=== PATIENT | female | born 1950 | race Caucasian/White ===

== ENCOUNTER → 2017-01-27 | Outpatient (CLI) | payer OTHER | LOC: FIMAGING 08:59 | PROVIDERS: ATTEND Physician Assistant | DX: K76.0 Fatty (change of) liver, not elsewhere classified (principal); R16.1 Splenomegaly, not elsewhere classified ==

== ENCOUNTER 2017-06-18 20:36 | Inpatient (IN) | payer OTHER ==
--- NOTE | 2017-06-18 20:54 | EDPHY ---
H & P Time Seen by Provider: 06/18/17 20:53 HPI/ROS: CHIEF COMPLAINT: Allergic reaction HISTORY OF PRESENT ILLNESS: The patient has a history of a mast cell disorder. She presents to the ED after typical allergic reaction with symptoms of flushing, vomiting and mild dyspnea. The patient self administered 1 IM epinephrine shot. She took Benadryl and prednisone orally however vomited immediately after taking the medications. She arrives in the emergency department with her . The patient states these are fairly typical symptoms of her underlying mass cell disorder. The patient is fairly concrete that her epinephrine be given subcutaneously, Benadryl be given intramuscularly and that all medications be preservative free. The patient does complain of some mild anterior chest pain. She denies additional acute complaints. REVIEW OF SYSTEMS: A comprehensive 10 point review of systems is otherwise negative aside from elements mentioned in the history of present illness. Source: Patient Exam Limitations: No limitations - Medical/Surgical History Hx Asthma: No Hx Chronic Respiratory Disease: No Hx Diabetes: Yes Hx Cardiac Disease: No Hx Renal Disease: No Hx Cirrhosis: No Hx Alcoholism: No Hx HIV/AIDS: No Hx Splenectomy or Spleen Trauma: No Other PMH: systemic mastocyctosis, hoshimoto's, hysterectomy, ovarian ca, carpal tunnel surg, cyst removed from back - Social History Smoking Status: Former smoker - Physical Exam Exam: General Appearance: Alert, anxious Eyes: Pupils equal and round no pallor or injection ENT, Mouth: Mucous membranes moist Respiratory: There are no retractions, lungs are clear to auscultation Cardiovascular: Tachycardic Gastrointestinal: Abdomen is soft and nontender, no masses, bowel sounds normal Neurological: A&O, normal motor function, normal sensory exam, normal cranial nerves Skin: Flushing in the face, mild erythema noted to the backs of hands and arms Musculoskeletal: Neck is supple nontender Extremities: symmetrical, full range of motion Constitutional: Initial Vital Signs Temperature (C) 36.9 C 06/18/17 21:10 Heart Rate 123 H 06/18/17 21:10 Respiratory Rate 20 06/18/17 21:10 Blood Pressure 135/63 H 06/18/17 21:10 O2 Sat (%) 95 06/18/17 21:10 O2 Delivery Mode Room Air Allergies/Adverse Reactions: diphenhydramine HCl [From Benadryl] Allergy (Severe, Verified 06/18/17 21:05) Anaphylaxis doxycycline Allergy (Severe, Verified 06/18/17 21:05) Anaphylaxis paclitaxel Allergy (Severe, Verified 06/18/17 21:05) Anaphylaxis Quinolones Allergy (Severe, Verified 06/18/17 21:05) Anaphylaxis alcohol Allergy (Verified 06/18/17 21:05) amphotericin B Allergy (Verified 06/18/17 21:05) aspirin Allergy (Verified 06/18/17 21:05) atracurium Allergy (Verified 06/18/17 21:05) benzocaine Allergy (Verified 06/18/17 21:05) chloroprocaine Allergy (Verified 06/18/17 21:05) codeine Allergy (Verified 06/18/17 21:05) dextran sulfate Allergy (Verified 06/18/17 21:05) dextromethorphan Allergy (Verified 06/18/17 21:05) doxacurium Allergy (Verified 06/18/17 21:05) ketorolac tromethamine [From Toradol] Allergy (Verified 06/18/17 21:05) metocurine Allergy (Verified 06/18/17 21:05) mivacurium Allergy (Verified 06/18/17 21:05) morphine Allergy (Verified 06/18/17 21:05) NSAIDS (Non-Steroidal Anti-Inflamma Allergy (Verified 06/18/17 21:05) polymyxin B Allergy (Verified 06/18/17 21:05) procaine Allergy (Verified 06/18/17 21:05) quinine Allergy (Verified 06/18/17 21:05) succinylcholine Allergy (Verified 06/18/17 21:05) tetracaine Allergy (Verified 06/18/17 21:05) vancomycin Allergy (Verified 06/18/17 21:05) contrast dye Allergy (Severe, Uncoded 05/25/16 17:14) Anaphylaxis ANTICHOLINERGICS Allergy (Uncoded 05/25/16 17:14) anything causing mast cell degranul Allergy (Uncoded 12/17/15 20:51) beta blockers Allergy (Uncoded 12/17/15 20:52) local anesthetics Allergy (Uncoded 12/17/15 20:52) PRESERVATIVES Allergy (Uncoded 05/25/16 17:14) TURBOCURARINE Allergy (Uncoded 05/25/16 17:14) Home Medications: Medication Instructions Recorded Astaj 12/17/15 Atrovent Hfa (RX) 12/17/15 BENADRYL PO 12/17/15 Bromelain 12/17/15 Cromolyn Sodium 12/17/15 Epinephrine 12/17/15 FEXOFENADINE HCL 12/17/15 Flovent 110 MCG Hfa MDI (RX) 12/17/15 GASTROCROM 12/17/15 Hydroxyzine HCl 12/17/15 Ketotifen Fumarate 12/17/15 LORAZEPAM 12/17/15 Nasalcrom 12/17/15 Pepcid 12/17/15 Synthroid 12/17/15 Tumeric 12/17/15 Tylenol 12/17/15 Veramyst 12/17/15 ZYRTEC 12/17/15 predniSONE 12/17/15 traMADOL 12/17/15 Medical Decision Making - Diagnostics EKG Interpretation: EKG: Complete interpretation has been separately recorded in the gripNote archive. Summary impression: Sinus tachycardia, ST segment depression noted diffusely. Likely rate-related ED Course/Re-evaluation: The patient presents to the emergency department with symptoms of flushing, tachycardia and rash consistent with her prior episodes of mastocytosis. The patient did receive epinephrine intramuscularly prior to arrival. Her heart rate is currently in the 130s. She has no evidence of hypotension or respiratory failure. The patient had an IV established. She received 125 mg of IV Solu-Medrol. She received 50 mg of IM Benadryl. The patient was placed on a security monitor. She received supplemental oxygen. The patient's EKG does demonstrate sinus tachycardia. She does have diffuse ST segment depression. There is no prior EKG to compare to. I re-evaluated the patient at 10:30 p.m.. Her symptoms of flushing have resolved. She has had no recurrent chest pain. The patient has no history of coronary artery disease. She is not had chest pain as a symptom of her allergic reactions in the past. Given her ST segment depression we did discuss risks and benefits of inpatient hospitalization. I do feel that she should be ruled out for myocardial infarction this evening. I discussed the case with Dr. Cardenas, who will admit the patient for observation this evening. The patient is currently chest pain-free. Differential Diagnosis: Differential diagnosis considered includes anaphylaxis, angioedema, urticaria, mast cell disorder - Data Points Laboratory Results: Laboratory Results 06/18/17 21:00 06/18/17 21:00 06/18/17 06/18/17 21:00 21:00 WBC 8.25 10^3/uL 10^3/uL (3.80-9.50) RBC 3.58 10^6/uL L 10^6/uL (4.18-5.33) Hgb 11.9 g/dL L g/dL (12.6-16.3) Hct 33.2 % L % (38.0-47.0) MCV 92.7 fL fL (81.5-99.8) MCH 33.2 pg pg (27.9-34.1) MCHC 35.8 g/dL g/dL (32.4-36.7) RDW 13.1 % % (11.5-15.2) Plt Count 288 10^3/uL 10^3/uL (150-400) MPV 9.4 fL fL (8.7-11.7) Neut % (Auto) 68.9 % % (39.3-74.2) Lymph % (Auto) 24.2 % % (15.0-45.0) [place] % (Auto) 4.7 % % (4.5-13.0) Eos % (Auto) 0.4 % L % (0.6-7.6) Baso % (Auto) 0.1 % L % (0.3-1.7) Nucleat RBC Rel Count 0.0 % % (0.0-0.2) Absolute Neuts (auto) 5.68 10^3/uL 10^3/uL (1.70-6.50) Absolute Lymphs (auto) 2.00 10^3/uL 10^3/uL (1.00-3.00) Absolute Monos (auto) 0.39 10^3/uL 10^3/uL (0.30-0.80) Absolute Eos (auto) 0.03 10^3/uL 10^3/uL (0.03-0.40) Absolute Basos (auto) 0.01 10^3/uL L 10^3/uL (0.02-0.10) Absolute Nucleated RBC 0.00 10^3/uL 10^3/uL (0-0.01) Immature Gran % 1.7 % H % (0.0-1.1) Immature Gran # 0.14 10^3/uL H 10^3/uL (0.00-0.10) Sodium 137 mEq/L mEq/L (134-144) Potassium 4.0 mEq/L mEq/L (3.5-5.2) Chloride 103 mEq/L mEq/L (97-110) Carbon Dioxide 18 mEq/l L mEq/l (22-31) Anion Gap 16 mEq/L mEq/L (8-16) BUN 16 mg/dL mg/dL (7-23) Creatinine 0.7 mg/dL mg/dL (0.6-1.0) Estimated GFR > 60 Glucose 237 mg/dL H mg/dL (70-100) Calcium 9.3 mg/dL mg/dL (8.5-10.4) Troponin I < 0.012 ng/mL ng/mL (0.000-0.034) Medications Given: Discontinued Medications Diphenhydramine HCl (Benadryl Injection) 50 mg IM EDNOW ONE Stop: 06/18/17 21:08 Last Admin: 06/18/17 21:14 Dose: 50 mg Methylprednisolone Sodium Succinate (Solu-Medrol) 125 mg IVP EDNOW ONE Stop: 06/18/17 21:08 Last Admin: 06/18/17 21:20 Dose: 125 mg Departure - Departure Disposition: [facility] Inpatient Acute Clinical Impression: Allergic reaction, Chest pain Condition: Good Referrals: Carolina Hatch MD [Primary Care Provider] - As per Instructions
[2017-06-18] MEDS ORDERED: methylPREDNISolone SOD SUCC 125 MG/2 ML VIAL IVP ONE (21:07)
--- NOTE | 2017-06-18 21:38 | CPEKG ---
Heart Rate: 125 RR Interval: 480 P-R Interval: 160 QRSD Interval: 66 QT Interval: 304 QTC Interval: 439 P [place]: 73 QRS [place]: 42 T Wave [place]: 72 EKG Severity - ABNORMAL ECG - EKG Impression: SINUS TACHYCARDIA EKG Impression: ST DEPRESSION, CONSIDER ISCHEMIA, LAT LEADS Electronically Signed By: Zach Godwin 18-Jun-2017 21:54:33
[2017-06-18 21:57] LABS: % IMMATURE GRANULYOCYTES 1.7 % (0.0-1.1); ABSOLUTE IMMATURE GRANULOCYTES 0.14 10^3/uL (0.00-0.10); ADD DIFF? NO; ADD MORPH? NO; ADD SCAN? NO; ATYPICAL LYMPHOCYTE FLAG 20 (0-99); FRAGMENT RBC FLAG 0 (0-99); HEMATOCRIT 33.2 % (38.0-47.0); HEMOGLOBIN 11.9 g/dL (12.6-16.3); LEFT SHIFT FLG 0 (0-99); LIPEMIA HEMOLYSIS FLAG 90 (0-99); MEAN CELL HEMOGLOBIN 33.2 pg (27.9-34.1); MEAN CELL HEMOGLOBIN CONCENTR. 35.8 g/dL (32.4-36.7); MEAN CELL VOLUME 92.7 fL (81.5-99.8); MEAN PLATELET VOLUME 9.4 fL (8.7-11.7); PLATELET CLUMPS FLAG 0 (0-99); PLATELET COUNT 288 10^3/uL (150-400); RED BLOOD CELL COUNT 3.58 10^6/uL (4.18-5.33); RED CELL DISTRIBUTION WIDTH 13.1 % (11.5-15.2)
[2017-06-18 22:02] LABS: ANION GAP 16 mEq/L (8-16); CALCIUM 9.3 mg/dL (8.5-10.4); CARBON DIOXIDE 18 mEq/l (22-31); CHLORIDE 103 mEq/L (97-110); CREATININE 0.7 mg/dL (0.6-1.0); GLOMERULAR FILTRATION RATE > 60; GLUCOSE 237 mg/dL (70-100); SODIUM 137 mEq/L (134-144)
[2017-06-18 22:14] LABS: TROPONIN I < 0.012 ng/mL (0.000-0.034)
[2017-06-18] MEDS ORDERED: ACETAMINOPHEN 325 MG TAB PO PRN (22:57)
[2017-06-18] MEDS ORDERED: ONDANSETRON 4 MG/2 ML VIAL IVP PRN (22:57)
[2017-06-18] MEDS ORDERED: diphenhydrAMINE 25 MG CAP PO PRN (22:57)
[2017-06-18] MEDS ORDERED: LORazepam 0.5 MG TAB PO PRN (22:57)
[2017-06-18] MEDS ORDERED: D5W 1/2 NS W/ 20 KCl/L 1,000 ML IV SCH (23:00)
[2017-06-18] MEDS ORDERED: NITROGLYCERIN 0.4 MG BTL SL PRN (23:02)
[2017-06-18] MEDS ORDERED: FAMOTIDINE 20 MG TAB PO PRN (23:03)
[2017-06-18] MEDS ORDERED: hydrOXYzine HCL 50 MG TAB PO PRN (23:05)
[2017-06-19] MEDS ORDERED: NS 1,000 ML IV SCH (01:15)
[2017-06-19] MEDS: methylPREDNISolone SOD SUCC 125 MG/2 ML VIAL IVP SCH ×6 (01:31→22:03)
--- NOTE | 2017-06-19 04:09 | PDGENHP ---
History and Physical - Chief Complaint flushing - History of Present Illness Date of Service - Same as Date of admission 06/18/2017. late note entry. Source - patient provides history and appears reliable. EMR reviewed and case discussed with ED provider. HPI - Pleasant 67 yo F with pmhx significant for mastocytosis,hypothyroidism ( Lou), remote hx ovarian cancer, HLD who presents to the ED today with complaint of exacerbation of mastocytosis symptoms while eating out at a restaurant with family. Patient developed flushing, nausea/vomiting which are usual symptoms however today patient developed chest pain in addition to these other symptoms. Patient treated with PO Benadryl, prednisone, and pepcid dosing however at that time she was not able to keep it down due to nausea/ vomiting. Patient reports she gave herself a dose of epinephrine prior to arrival but did not notice improvement in her symptoms. History Information - Allergies/Home Medication List Allergies/Adverse Reactions: dextrose Allergy (Severe, Verified 06/19/17 02:52) diphenhydramine HCl [From Benadryl] Allergy (Severe, Verified 06/18/17 21:05) Anaphylaxis doxycycline Allergy (Severe, Verified 06/18/17 21:05) Anaphylaxis paclitaxel Allergy (Severe, Verified 06/18/17 21:05) Anaphylaxis Quinolones Allergy (Severe, Verified 06/18/17 21:05) Anaphylaxis alcohol Allergy (Verified 06/18/17 21:05) amphotericin B Allergy (Verified 06/18/17 21:05) aspirin Allergy (Verified 06/18/17 21:05) atracurium Allergy (Verified 06/18/17 21:05) benzocaine Allergy (Verified 06/18/17 21:05) chloroprocaine Allergy (Verified 06/18/17 21:05) codeine Allergy (Verified 06/18/17 21:05) dextran sulfate Allergy (Verified 06/18/17 21:05) dextromethorphan Allergy (Verified 06/18/17 21:05) doxacurium Allergy (Verified 06/18/17 21:05) ketorolac tromethamine [From Toradol] Allergy (Verified 06/18/17 21:05) metocurine Allergy (Verified 06/18/17 21:05) mivacurium Allergy (Verified 06/18/17 21:05) morphine Allergy (Verified 06/18/17 21:05) NSAIDS (Non-Steroidal Anti-Inflamma Allergy (Verified 06/18/17 21:05) polymyxin B Allergy (Verified 06/18/17 21:05) procaine Allergy (Verified 06/18/17 21:05) quinine Allergy (Verified 06/18/17 21:05) succinylcholine Allergy (Verified 06/18/17 21:05) tetracaine Allergy (Verified 06/18/17 21:05) vancomycin Allergy (Verified 06/18/17 21:05) contrast dye Allergy (Severe, Uncoded 05/25/16 17:14) Anaphylaxis ANTICHOLINERGICS Allergy (Uncoded 05/25/16 17:14) anything causing mast cell degranul Allergy (Uncoded 12/17/15 20:51) beta blockers Allergy (Uncoded 12/17/15 20:52) local anesthetics Allergy (Uncoded 12/17/15 20:52) PRESERVATIVES Allergy (Uncoded 05/25/16 17:14) TURBOCURARINE Allergy (Uncoded 05/25/16 17:14) Home Medications: Astelin 12/17/15 [Last Taken Unknown] Atrovent Hfa (RX) 12/17/15 [Last Taken Unknown] BENADRYL PO 12/17/15 [Last Taken Unknown] Bromelain 12/17/15 [Last Taken Unknown] Cromolyn Sodium 12/17/15 [Last Taken Unknown] Epinephrine 12/17/15 [Last Taken Unknown] FEXOFENADINE HCL 12/17/15 [Last Taken Unknown] Flovent 110 MCG Hfa MDI (RX) 12/17/15 [Last Taken Unknown] GASTROCROM 12/17/15 [Last Taken Unknown] Hydroxyzine HCl 12/17/15 [Last Taken Unknown] Ketotifen Fumarate 12/17/15 [Last Taken Unknown] LORAZEPAM 12/17/15 [Last Taken Unknown] Nasalcrom 12/17/15 [Last Taken Unknown] Pepcid 12/17/15 [Last Taken Unknown] Synthroid 12/17/15 [Last Taken Unknown] Tumeric 12/17/15 [Last Taken Unknown] Tylenol 12/17/15 [Last Taken Unknown] Veramyst 12/17/15 [Last Taken Unknown] ZYRTEC 12/17/15 [Last Taken Unknown] predniSONE 12/17/15 [Last Taken Unknown] traMADOL 12/17/15 [Last Taken Unknown] I have personally reviewed and updated: family history, medical history, social history, surgical history Past Medical History: mastocytosis, hypothyroidism (Lou's), ovarian ca, HLD - Surgical History Additional surgical history: hysterectomy/BSO, carpal tunnel release, cyst on back removed - Family History Additional family history: Breast/ovarian ca in mother, siblings and extended family. sister/mother with DM II. father CAD, hypothyroidism, kidney fibrosis, CVA, vascular dementia. mother with hx flushing - Social History Smoking Status: Former smoker Alcohol Use: None Drug Use: None Additional social history: Code FULL. MDPOA. Review of Systems Review of Systems: ROS: 10pt was reviewed & negative except for what was stated in HPI & below Constitutional: Reports: other. Denies: chills, fever EENMT: Reports: other (congestion, wears glasses). Denies: blurred vision, sore throat, throat swelling Cardiac: Denies: no symptoms Respiratory: Denies: cough, shortness of breath Gastrointestinal: Reports: vomitting, nausea. Denies: diarrhea Genitourinary: Denies: burning, hematuria Muscolosketal: Denies: joint pain, muscle stiffness Skin: Reports: dryness, other (hives, redness arms/chest/face) Neurological: Denies: headache, numbness Hematologic/Lymphatic: Denies: blood clots Immunologic/Allergy: Reports: other (mastocytosis) Physical Exam Physical Exam: Temp Pulse Resp BP Pulse Ox 37.2 C 111 H 16 117/68 96 06/18/17 23:45 06/18/17 23:45 06/18/17 23:45 06/18/17 23:45 06/18/17 23:45 Constitutional: no apparent distress, other (NAD. pleasant thin adult female sitting in bed awake. at bedside. ), No chronically ill appearing Eyes: PERRL, anicteric sclera, EOMI, No icteric sclera Ears, Nose, Mouth, Throat: moist mucous membranes, No poor dentition Cardiovascular: regular rate and rhythym, tachycardia, No systolic murmur Peripheral Pulses: 1+: dorsalis-pedis (R), dorsalis-pedis (L) Respiratory: no respiratory distress, no rales or rhonchi, clear to auscultation Gastrointestinal: normoactive bowel sounds, soft, non-tender abdomen, no palpable masses, No tenderness Genitourinary: no bladder tenderness, No asher in urethra Skin: warm, other (flushed with redness to face, arms, chest. ) Musculoskeletal: full muscle strength, No generalized weakness Neurologic: AAOx3, other (grossly nonfocal. ), No weakness Psychiatric: anxious, No depressed, No poor insight, No poor judgement, No poor memory Lab Data & Imaging Review 06/18/17 21:00 06/18/17 21:00 WBC 8.25 10^3/uL (3.80-9.50) 06/18/17 21:00 RBC 3.58 10^6/uL (4.18-5.33) L 06/18/17 21:00 Hgb 11.9 g/dL (12.6-16.3) L 06/18/17 21:00 Hct 33.2 % (38.0-47.0) L 06/18/17 21:00 MCV 92.7 fL (81.5-99.8) 06/18/17 21:00 MCH 33.2 pg (27.9-34.1) 06/18/17 21:00 MCHC 35.8 g/dL (32.4-36.7) 06/18/17 21:00 RDW 13.1 % (11.5-15.2) 06/18/17 21:00 Plt Count 288 10^3/uL (150-400) 06/18/17 21:00 MPV 9.4 fL (8.7-11.7) 06/18/17 21:00 Neut % (Auto) 68.9 % (39.3-74.2) 06/18/17 21:00 Lymph % (Auto) 24.2 % (15.0-45.0) 06/18/17 21:00 [place] % (Auto) 4.7 % (4.5-13.0) 06/18/17 21:00 Eos % (Auto) 0.4 % (0.6-7.6) L 06/18/17 21:00 Baso % (Auto) 0.1 % (0.3-1.7) L 06/18/17 21:00 Nucleat RBC Rel Count 0.0 % (0.0-0.2) 06/18/17 21:00 Absolute Neuts (auto) 5.68 10^3/uL (1.70-6.50) 06/18/17 21:00 Absolute Lymphs (auto) 2.00 10^3/uL (1.00-3.00) 06/18/17 21:00 Absolute Monos (auto) 0.39 10^3/uL (0.30-0.80) 06/18/17 21:00 Absolute Eos (auto) 0.03 10^3/uL (0.03-0.40) 06/18/17 21:00 Absolute Basos (auto) 0.01 10^3/uL (0.02-0.10) L 06/18/17 21:00 Absolute Nucleated RBC 0.00 10^3/uL (0-0.01) 06/18/17 21:00 Immature Gran % 1.7 % (0.0-1.1) H 06/18/17 21:00 Immature Gran # 0.14 10^3/uL (0.00-0.10) H 06/18/17 21:00 Sodium 137 mEq/L (134-144) 06/18/17 21:00 Potassium 4.0 mEq/L (3.5-5.2) 06/18/17 21:00 Chloride 103 mEq/L (97-110) 06/18/17 21:00 Carbon Dioxide 18 mEq/l (22-31) L 06/18/17 21:00 Anion Gap 16 mEq/L (8-16) 06/18/17 21:00 BUN 16 mg/dL (7-23) 06/18/17 21:00 Creatinine 0.7 mg/dL (0.6-1.0) 06/18/17 21:00 Estimated GFR > 60 06/18/17 21:00 Glucose 237 mg/dL (70-100) H 06/18/17 21:00 Calcium 9.3 mg/dL (8.5-10.4) 06/18/17 21:00 Troponin I < 0.012 ng/mL (0.000-0.034) 06/18/17 21:00 Visualized and Interpreted EKG results: Yes EKG Interpretation: Positive for: normal sinsus rhythm, ST depression (infero- lateral leads) EKG additional interpertation: sinus tach 120s. ST depression inferolateral leads. small q wave aVL. QTc 439 Assessment & Plan Assessment: Pleasant 67 yo F with pmhx significant for mastocytosis, CP, hypothyroidism who presents to ED with Allergic reaction (Acute) - 2/2 mastocytosis. s/p benadryl,pepcid, prednisone however pt threw up and was only able to use epinephrine prior to arrival. Since that time patient received solu-medrol in ED. On the floor patient took additional benadryl, ativan. Patient was started on IVF on the floor of D5 1/2 NS + KCl and started to develop flushing again which is atypical pattern for her. Dextrose was discontinued immediately and changed to Normal saline. She responded appropriately to steroids and additional benadryl. Patient has hydroxyzine on her medication list but notes she actually has never tried it and would rather not use at this time. Chest pain (Acute) - during acute exacerbation of reaction. Patient denies any previous history of chest pain. ddx including less likely ACS vs. Kounis syndrome (related to mastocytosis causing vasoconstriction and cardiac injury). Patient risk factor Patient currently without chest pain. monitor on telemetry. repeat ekg and troponin in AM. nitro prn. Patient HEART score is noted to be 5. will monitor closely. Mastocytosis - continue steroids, benadryl, zyrtec, pepcid. Patient with list of medications to avoid in setting of her diagnosis and copied into chart. hypothyroidism - continue l-thyroxine. ovarian cancer in remission FEN - diet as tolerated. electrolytes prn. IV changed to NS. PPX - SCDs. holding anticoagulation 2/2 hx allergies. COR - FULL. MDPOA.
[2017-06-19 05:20] LABS: % IMMATURE GRANULYOCYTES 0.9 % (0.0-1.1); ADD DIFF? NO; ADD MORPH? NO; ADD SCAN? NO; ATYPICAL LYMPHOCYTE FLAG 0 (0-99); FRAGMENT RBC FLAG 0 (0-99); HEMATOCRIT 31.5 % (38.0-47.0); HEMOGLOBIN 11.3 g/dL (12.6-16.3); LEFT SHIFT FLG 0 (0-99); LIPEMIA HEMOLYSIS FLAG 90 (0-99); MEAN CELL HEMOGLOBIN 33.1 pg (27.9-34.1); MEAN CELL HEMOGLOBIN CONCENTR. 35.9 g/dL (32.4-36.7); MEAN CELL VOLUME 92.4 fL (81.5-99.8); MEAN PLATELET VOLUME 9.2 fL (8.7-11.7); PLATELET CLUMPS FLAG 10 (0-99); PLATELET COUNT 225 10^3/uL (150-400); RED BLOOD CELL COUNT 3.41 10^6/uL (4.18-5.33); RED CELL DISTRIBUTION WIDTH 13.2 % (11.5-15.2)
[2017-06-19 05:47] LABS: ANION GAP 12 mEq/L (8-16); CALCIUM 9.3 mg/dL (8.5-10.4); CARBON DIOXIDE 21 mEq/l (22-31); CHLORIDE 105 mEq/L (97-110); CREATININE 0.7 mg/dL (0.6-1.0); GLOMERULAR FILTRATION RATE > 60; GLUCOSE 163 mg/dL (70-100); POTASSIUM 4.2 mEq/L (3.5-5.2); SODIUM 138 mEq/L (134-144)
[2017-06-19 05:57] LABS: TROPONIN I 0.019 ng/mL (0.000-0.034)
--- NOTE | 2017-06-19 08:41 | CPEKG ---
Heart Rate: 90 RR Interval: 667 P-R Interval: 144 QRSD Interval: 70 QT Interval: 348 QTC Interval: 426 P [place]: 81 QRS [place]: 50 T Wave [place]: 46 EKG Severity - ABNORMAL ECG - EKG Impression: SINUS RHYTHM EKG Impression: LEFT ATRIAL ABNORMALITY EKG Impression: PROBABLE LEFT VENTRICULAR HYPERTROPHY Preliminary Awaiting MD Review
[2017-06-19] MEDS ORDERED: predniSONE 20 MG TAB PO SCH (09:00)
--- NOTE | 2017-06-19 09:59 | ASMTCMCOM ---
CM Note CM Note Notes: 06/19/2017 Case Management Note: Reviewed chart, spoke w/RN. No case management d/c needs identified d/t pt age, marital status and activity levels prior to admission. Case Management d/c poc: Independent when medically stable with follow up as directed. Case Management available if needs change. Date Signed: 06/19/2017 09:59 AM Electronically Signed By:Ankita Boucher RN
--- NOTE | 2017-06-19 10:34 | HOSPPROG ---
Hospitalist Progress Note Assessment/Plan: Called to see patient urgently - feels like she is having another reaction. C/ o CP. PE:anxious, tachycardic; splotchy erythema on face and neck A/P: Ongoing anaphylactic reaction d/t mastocytosis - transfer to ICU - epi 0.3 IM stat - solu-medrol 125 mg now - benadryl 50mg PO now 35 minutes floor critical care time managing anaphylaxis Objective: Vital Signs Temp Pulse Resp BP Pulse Ox 36.4 C 115 H 20 151/60 H 95 06/19/17 10:30 06/19/17 10:30 06/19/17 10:30 06/19/17 10:30 06/19/17 07:28 Laboratory Results 06/19/17 03:45 06/19/17 03:45 06/18/17 06/19/17 06/20/17 05:59 05:59 05:59 Intake Total 752 Balance 752 ICD10 Worksheet Patient Problems: Problems Problem Status Onset Allergic reaction Acute Chest pain Acute
[2017-06-19] MEDS ORDERED: ONDANSETRON DISINTEGRATING 4 MG TAB PO PRN (10:38)
--- NOTE | 2017-06-19 10:56 | CPEKG ---
Heart Rate: 127 RR Interval: 472 P-R Interval: 152 QRSD Interval: 72 QT Interval: 312 QTC Interval: 454 P [place]: 83 QRS [place]: 52 T Wave [place]: 74 EKG Severity - BORDERLINE ECG - EKG Impression: SINUS TACHYCARDIA EKG Impression: CONSIDER RIGHT VENTRICULAR HYPERTROPHY EKG Impression: BORDERLINE ST DEPRESSION, LATERAL LEADS Preliminary Awaiting MD Review
[2017-06-19] MEDS ORDERED: IPRATROPIUM 0.03% NASAL SPRAY EACHNARE PRN (15:33)
[2017-06-19] MEDS ORDERED: Azelastine/Fluticasone [Dymista Nasal Spray] EACHNARE PRN (15:33)
[2017-06-19] MEDS ORDERED: NON-FORMULARY NEW DRUG (Epinephrine [Epipen 0.3 Mg] 0.3 MG) IM PRN (15:33)
[2017-06-19] MEDS ORDERED: AZELASTINE NASAL MDI EACHNARE PRN (15:33)
[2017-06-19] MEDS ORDERED: MONTELUKAST SODIUM 10 MG TAB PO PRN ×2 (15:33→16:42)
[2017-06-19] MEDS ORDERED: FEXOFENADINE HCL 60 MG PO PRN (15:33)
[2017-06-19] MEDS ORDERED: hydrOXYzine HCL 10 MG TAB PO PRN (15:33)
[2017-06-19] MEDS ORDERED: diphenhydrAMINE 25 MG CAP PO PRN (15:33)
[2017-06-19] MEDS ORDERED: ACETAMINOPHEN 325 MG TAB PO PRN (15:33)
[2017-06-19] MEDS ORDERED: traMADol 50 MG TAB PO PRN (15:33)
[2017-06-19] MEDS ORDERED: BEPREVE EYE EACHEYE PRN (15:33)
[2017-06-19] MEDS ORDERED: KETOTIFEN FUMARATE EACHEYE PRN (15:33)
[2017-06-19] MEDS ORDERED: NON-FORMULARY NEW DRUG (Ranitidine Hcl [Zantac] 150 MG) PO PRN (15:33)
[2017-06-19] MEDS ORDERED: VERAMYST EACHNARE PRN (15:33)
[2017-06-19] MEDS ORDERED: FLUTICASONE HFA 110 MCG MDI IH PRN (15:33)
[2017-06-19] MEDS ORDERED: CALCIUM CARBONATE 500 MG CHEWABLE TAB PO PRN (15:33)
[2017-06-19] MEDS ORDERED: NON-FORMULARY NEW DRUG (Levocetirizine Dihydrochloride [Xyzal] 5 MG) PO PRN (15:33)
--- NOTE | 2017-06-19 15:52 | PDMN ---
Medical Necessity Medical necessity: pt with another reaction, c/o CP. anxious, tachycardic, ongoing anaphylactic rxn r/t mastocytosis. Pt t-ferred to ICU for closer monitoring, status upgraded to INPT for ongoing med nec care, inpt monitoring and tx of above > 2 midnights
[2017-06-19] MEDS ORDERED: CROMOLYN SODIUM PO SCH ×2 (16:00→22:00)
[2017-06-19] MEDS ORDERED: DIPHENHYDRAMINE PO PRN (16:35)
[2017-06-19] MEDS ORDERED: EPINEPHRINE 0.3 MG IM PRN (16:36)
[2017-06-19] MEDS ORDERED: CETIRIZINE 10 MG TAB PO PRN (17:05)
[2017-06-19] MEDS ORDERED: [UNRECOGNIZED DRUG - OTHER] PO PRN (17:07)
--- NOTE | 2017-06-19 17:22 | PDCARCONS ---
Cardiology Consult Reason for Consult: Chest pressure Chief Complaint: Chest pressure Requesting Physician: Dr. Landeros History of Present Illness: 67-year-old female with systemic mastocytosis admitted with a flare of her systemic disease. This was characterized by episodic chest pressure as well as her typical red rash of her face. An EKG was performed during symptoms which showed ST depression which resolved. The question of cardiac involvement is raised. On my arrival she is feeling fair. She is concerned about continuing triggers. She had an episode earlier this afternoon. The patient denies syncope. She has no PND orthopnea. She has no prior cardiovascular history. She has had a stress echocardiogram in the past which was unremarkable. Standard cardiac risk factors include remote tobacco abuse, hyperlipidemia. She has no history of hypertension, diabetes, no family history of premature disease. 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 She is cared for at [facility]. Her primary care physician's here in town Dr. Hatch. History Information - Allergies/Home Medication List Allergies/Adverse Reactions: dextrose Allergy (Severe, Verified 06/19/17 02:52) diphenhydramine HCl [From Benadryl] Allergy (Severe, Verified 06/18/17 21:05) Anaphylaxis doxycycline Allergy (Severe, Verified 06/18/17 21:05) Anaphylaxis paclitaxel Allergy (Severe, Verified 06/18/17 21:05) Anaphylaxis Quinolones Allergy (Severe, Verified 06/18/17 21:05) Anaphylaxis alcohol Allergy (Verified 06/18/17 21:05) amphotericin B Allergy (Verified 06/18/17 21:05) aspirin Allergy (Verified 06/18/17 21:05) atracurium Allergy (Verified 06/18/17 21:05) benzocaine Allergy (Verified 06/18/17 21:05) chloroprocaine Allergy (Verified 06/18/17 21:05) codeine Allergy (Verified 06/18/17 21:05) dextran sulfate Allergy (Verified 06/18/17 21:05) dextromethorphan Allergy (Verified 06/18/17 21:05) doxacurium Allergy (Verified 06/18/17 21:05) ketorolac tromethamine [From Toradol] Allergy (Verified 06/18/17 21:05) metocurine Allergy (Verified 06/18/17 21:05) mivacurium Allergy (Verified 06/18/17 21:05) morphine Allergy (Verified 06/18/17 21:05) NSAIDS (Non-Steroidal Anti-Inflamma Allergy (Verified 06/18/17 21:05) polymyxin B Allergy (Verified 06/18/17 21:05) procaine Allergy (Verified 06/18/17 21:05) quinine Allergy (Verified 06/18/17 21:05) succinylcholine Allergy (Verified 06/18/17 21:05) tetracaine Allergy (Verified 06/18/17 21:05) vancomycin Allergy (Verified 06/18/17 21:05) contrast dye Allergy (Severe, Uncoded 05/25/16 17:14) Anaphylaxis ANTICHOLINERGICS Allergy (Uncoded 05/25/16 17:14) anything causing mast cell degranul Allergy (Uncoded 12/17/15 20:51) beta blockers Allergy (Uncoded 12/17/15 20:52) local anesthetics Allergy (Uncoded 12/17/15 20:52) PRESERVATIVES Allergy (Uncoded 05/25/16 17:14) TURBOCURARINE Allergy (Uncoded 05/25/16 17:14) Home Medications: Acetaminophen [Tylenol 325mg (*)] 1 - 2 tab PO DAILY PRN 12/17/15 [Last Taken Unknown] Cetirizine [ZyrTEC 10 mg (*)] 10 - 20 mg PO HS 12/17/15 [Last Taken 06/18/17 20mg] Cromolyn Sodium [GASTROCROM] 40 mg PO QID 12/17/15 [Last Taken 06/19/17] EPINEPHrine [Epipen 0.3 MG] 0.3 mg IM ONCE PRN 12/17/15 [Last Taken Unknown] Famotidine [Pepcid 20 MG (*)] 20 - 40 mg PO BID 12/17/15 [Last Taken 06/19/17 40mg] Fexofenadine HCl 60 mg PO DAILY 12/17/15 [Last Taken 06/18/17] Fluticasone Hfa 110 Mcg [Flovent 110 MCG Hfa MDI (*)] 2 puffs IH DAILY PRN 12/16 [Last Taken Unknown] Ipratropium 0.03% Nasal [Atrovent 0.03% Nasal (*)] 1 sprays EACHNARE BID PRN 03/26 [Last Taken Unknown] Ketotifen Fumarate 1 drop EACHEYE BID PRN 12/17/15 [Last Taken Unknown] LORazepam [Ativan (*)] 0.5 - 1 mg PO HS 12/17/15 [Last Taken 06/18/17 0.5 tab] Levothyroxine [Synthroid 125 mcg (*)] 125 mcg PO DAILY06 12/17/15 [Last Taken ] diphenhydrAMINE [Benadryl 25 MG (*)] 25 - 50 mg PO DAILY PRN 12/17/15 [Last Taken Unknown] hydrOXYzine HCL [Vistaril] 10 mg PO DAILY PRN 12/17/15 [Last Taken Unknown] predniSONE 40 - 60 mg PO DAILY PRN 12/17/15 [Last Taken 06/18/17 18:00 30mg] traMADol [Ultram 50 mg (*)] 50 mg PO DAILY PRN 12/17/15 [Last Taken Unknown] Azelastine [Astelin Nasal [place] (RX)] 1 - 2 sprays EACHNARE BID PRN 06/19/17 [ Last Taken Unknown] Azelastine/Fluticasone [Dymista Nasal [place]] 1 - 2 sprays EACHNARE DAILY PRN 05/28 [Last Taken Unknown] Bepreve Eye Drops 1 drop EACHEYE BID PRN 06/19/17 [Last Taken Unknown] Calcium Carbonate [Tums 500MG (*)] 500 mg PO DAILY PRN 06/19/17 [Last Taken Unknown] Fexofenadine HCl 30 mg PO DAILY@14 06/19/17 [Last Taken 06/18/17] Fexofenadine HCl 60 mg PO HS PRN 06/19/17 [Last Taken Unknown] Herbals/Supplements -Info Only 1 ea PO DAILY 06/19/17 [Last Taken Unknown] Levocetirizine Dihydrochloride [Xyzal] 5 mg PO DAILY PRN 06/19/17 [Last Taken Unknown] Montelukast Sodium [Singulair 10 mg (*)] 10 mg PO DAILY PRN 06/19/17 [Last Taken Unknown] Multivitamins [Multivitamin (*)] 1 each PO DAILY 06/19/17 [Last Taken Unknown] Olopatadine Nasal [place] 1 - 2 sprays EACHNARE DAILY 06/19/17 [Last Taken ] Ranitidine HCl [Zantac] 150 mg PO DAILY PRN 06/19/17 [Last Taken 06/18/17 14:00] Veramyst Nasal [place] 2 spray EACHNARE DAILY PRN 06/19/17 [Last Taken Unknown] I have personally reviewed and updated: family history, medical history, social history, surgical history Past Medical History: - Social History Smoking Status: Former smoker Alcohol Use: None Drug Use: None Physical Exam Physical Exam: Temp Pulse Resp BP Pulse Ox 36.4 C 96 20 110/68 99 06/19/17 10:30 06/19/17 14:57 06/19/17 10:30 06/19/17 14:57 06/19/17 14:57 Constitutional: no apparent distress, appears nourished Eyes: PERRL, anicteric sclera Ears, Nose, Mouth, Throat: moist mucous membranes Cardiovascular: regular rate and rhythym, no murmur, rub, or gallop, No systolic murmur, No JVD Peripheral Pulses: 1+: carotid (R), carotid (L), femoral (R), femoral (L), dorsalis-pedis (R), dorsalis-pedis (L) Respiratory: no respiratory distress, no rales or rhonchi, clear to auscultation Gastrointestinal: normoactive bowel sounds, soft, non-tender abdomen, No hepatosplenomegally Genitourinary: no bladder fullness, no bladder tenderness Skin: warm Musculoskeletal: full muscle strength Neurologic: AAOx3 Lab and Imaging 06/19/17 03:45 06/19/17 03:45 WBC 11.00 10^3/uL (3.80-9.50) H 06/19/17 03:45 RBC 3.41 10^6/uL (4.18-5.33) L 06/19/17 03:45 Hgb 11.3 g/dL (12.6-16.3) L 06/19/17 03:45 Hct 31.5 % (38.0-47.0) L 06/19/17 03:45 MCV 92.4 fL (81.5-99.8) 06/19/17 03:45 MCH 33.1 pg (27.9-34.1) 06/19/17 03:45 MCHC 35.9 g/dL (32.4-36.7) 06/19/17 03:45 RDW 13.2 % (11.5-15.2) 06/19/17 03:45 Plt Count 225 10^3/uL (150-400) D 06/19/17 03:45 MPV 9.2 fL (8.7-11.7) 06/19/17 03:45 Neut % (Auto) 92.2 % (39.3-74.2) H 06/19/17 03:45 Lymph % (Auto) 5.3 % (15.0-45.0) L 06/19/17 03:45 [place] % (Auto) 1.4 % (4.5-13.0) L 06/19/17 03:45 Eos % (Auto) 0.1 % (0.6-7.6) L 06/19/17 03:45 Baso % (Auto) 0.1 % (0.3-1.7) L 06/19/17 03:45 Nucleat RBC Rel Count 0.0 % (0.0-0.2) 06/19/17 03:45 Absolute Neuts (auto) 10.15 10^3/uL (1.70-6.50) H 06/19/17 03:45 Absolute Lymphs (auto) 0.58 10^3/uL (1.00-3.00) L 06/19/17 03:45 Absolute Monos (auto) 0.15 10^3/uL (0.30-0.80) L 06/19/17 03:45 Absolute Eos (auto) 0.01 10^3/uL (0.03-0.40) L 06/19/17 03:45 Absolute Basos (auto) 0.01 10^3/uL (0.02-0.10) L 06/19/17 03:45 Absolute Nucleated RBC 0.00 10^3/uL (0-0.01) 06/19/17 03:45 Immature Gran % 0.9 % (0.0-1.1) 06/19/17 03:45 Immature Gran # 0.10 10^3/uL (0.00-0.10) 06/19/17 03:45 Sodium 138 mEq/L (134-144) 06/19/17 03:45 Potassium 4.2 mEq/L (3.5-5.2) 06/19/17 03:45 Chloride 105 mEq/L (97-110) 06/19/17 03:45 Carbon Dioxide 21 mEq/l (22-31) L 06/19/17 03:45 Anion Gap 12 mEq/L (8-16) 06/19/17 03:45 BUN 14 mg/dL (7-23) 06/19/17 03:45 Creatinine 0.7 mg/dL (0.6-1.0) 06/19/17 03:45 Estimated GFR > 60 06/19/17 03:45 Glucose 163 mg/dL (70-100) H 06/19/17 03:45 POC Glucose 229 mg/dL (70-100) H 06/19/17 10:55 Calcium 9.3 mg/dL (8.5-10.4) 06/19/17 03:45 Troponin I < 0.012 ng/mL (0.000-0.034) 06/19/17 15:38 EKG additional interpertation: Initial EKG shows sinus rhythm with [address]- depression inferolateral leads. Follow-up EKG is normal. A/P Assessment: 67-year-old female with systemic mastocytosis presenting with flare of her chronic illness. Chest pressure was associated with ST depression which has resolved. There is no evidence of acute injury based on negative troponin. My review of the literature suggests that systemic mastocytosis rarely involves the heart. Case reports of allergic angina are reported. Treatment is focused on management of the systemic illness. There is a case report of intervention which triggered systemic mastocytosis and PEA. The patient does not currently reports syncope. She has minimal standard cardiovascular risk. At this point, she is pain free with stable hemodynamics. Plan: Recommendations are for continued telemetry monitoring. EKG with chest pressure. Plan for modified Kwan protocol tomorrow prior to discharge to risk stratify patient. Plan for baseline echocardiogram for assessment of LV function pulmonary artery pressure. Lipid analysis for standard risk. Treatment should be focused on the systemic illness as opposed to focal cardioselective medications. Would consider low-dose calcium douglas for persistent symptoms. Strong recommendation for evaluation at [facility]. Invasive evaluation, I think, is fraught with potential complications and its harm at this point clearly outweighs benefit. Review of Systems Review of Systems: - Review of Systems Constitutional: denies: chills, fever Cardiac: chest pain, lightheadedness, palpitations. denies: edema, irregular heart rate, syncope Gastrointestinal/Abdominal: no symptoms reported Genitourinary: no symptoms Musculoskelatal: back pain Skin: rash Neurological: no symptoms Past Medical History PMH: - Personal History Current Tetanus/Diphtheria Vaccine: Yes Current Tetanus Diphtheria and Acellular Pertussis (TDAP): Yes - Medical/Surgical History Hx Asthma: No Hx Chronic Respiratory Disease: No Hx Cardiac Disease: No Hx Diabetes: Yes Hx Renal Disease: No Hx Alcoholism: No Hx Cirrhosis: No Hx HIV/AIDS: No Hx Splenectomy or Spleen Trauma: No Other PMH: systemic mastocyctosis, hoshimoto's, hysterectomy, ovarian ca, carpal tunnel surg, cyst removed from back, tonsillectomy - Family History Significant Family History: No pertinent family hx - Social History Smoking Status: Former smoker Additional Social History:
[2017-06-19] MEDS ORDERED: diphenhydrAMINE 25 MG CAP PO SCH (18:00)
[2017-06-19] MEDS ORDERED: FAMOTIDINE 20 MG TAB PO SCH (21:00)
[2017-06-19] MEDS ORDERED: CETIRIZINE 10 MG TAB PO SCH ×2 (21:00)
[2017-06-19] MEDS ORDERED: FAMOTIDINE 20 MG/NACL 50 ML IV SCH (21:00)
[2017-06-19] MEDS ORDERED: LORazepam 0.5 MG TAB PO SCH (21:00)
[2017-06-19] MEDS: FAMOTIDINE 20 MG TAB PO SCH (21:49)
[2017-06-19] MEDS: CROMOLYN SODIUM PO SCH (21:52)
[2017-06-20] MEDS: methylPREDNISolone SOD SUCC 125 MG/2 ML VIAL IVP SCH ×7 (00:17→15:28)
[2017-06-20 05:36] LABS: % IMMATURE GRANULYOCYTES 1.7 % (0.0-1.1); ABSOLUTE IMMATURE GRANULOCYTES 0.17 10^3/uL (0.00-0.10); ADD DIFF? NO; ADD MORPH? NO; ADD SCAN? NO; ATYPICAL LYMPHOCYTE FLAG 0 (0-99); FRAGMENT RBC FLAG 0 (0-99); HEMATOCRIT 30.2 % (38.0-47.0); HEMOGLOBIN 10.8 g/dL (12.6-16.3); LEFT SHIFT FLG 0 (0-99); LIPEMIA HEMOLYSIS FLAG 90 (0-99); MEAN CELL HEMOGLOBIN 33.2 pg (27.9-34.1); MEAN CELL HEMOGLOBIN CONCENTR. 35.8 g/dL (32.4-36.7); MEAN CELL VOLUME 92.9 fL (81.5-99.8); MEAN PLATELET VOLUME 8.9 fL (8.7-11.7); PLATELET CLUMPS FLAG 0 (0-99); PLATELET COUNT 211 10^3/uL (150-400); RED BLOOD CELL COUNT 3.25 10^6/uL (4.18-5.33); RED CELL DISTRIBUTION WIDTH 13.6 % (11.5-15.2)
[2017-06-20 05:50] LABS: ANION GAP 11 mEq/L (8-16); CALCIUM 9.5 mg/dL (8.5-10.4); CARBON DIOXIDE 23 mEq/l (22-31); CHLORIDE 106 mEq/L (97-110); CHOLESTEROL 142 mg/dL (140-220); CHOLESTEROL/HDL RATIO 3.84 RATIO (1.00-4.44); CREATININE 0.7 mg/dL (0.6-1.0); GLOMERULAR FILTRATION RATE > 60; GLUCOSE 159 mg/dL (70-100); HIGH DENSITY LIPOPROTEIN 37 mg/dL (40-85); LDL/HDL RATIO 2.19 RATIO (1.00-3.22); LOW DENSITY LIPOPROTEIN 81 mg/dL (80-100); NON-HIGH DENSITY LIPOPROTEIN 105 mg/dL (90-129); POTASSIUM 4.7 mEq/L (3.5-5.2); SODIUM 140 mEq/L (134-144); TRIGLYCERIDE 120 mg/dL (35-135); VERY LOW DENSITY LIPOPROTEINS 24 mg/dL (8-25)
[2017-06-20] MEDS ORDERED: LEVOTHYROXINE 125 MCG TAB PO SCH ×2 (06:00)
[2017-06-20 06:01] LABS: CREATINE KINASE-MB FRACTION 2.02 ng/mL (0.00-3.19); TROPONIN I < 0.012 ng/mL (0.000-0.034)
[2017-06-20] MEDS ORDERED: FEXOFENADINE HCL 60 MG PO SCH (09:00)
[2017-06-20] MEDS ORDERED: OLOPATADINE EACHNARE SCH ×2 (09:00)
[2017-06-20] MEDS: FAMOTIDINE 20 MG TAB PO SCH (09:23)
[2017-06-20] MEDS: CROMOLYN SODIUM PO SCH (09:24)
--- NOTE | 2017-06-20 10:29 | ECHO ---
[email or web address] [address] [address] Main: [phone] Fax: [email or web address] Echocardiogram Name: DEMARIO BREWER MR#: [id number] Study Date: 06/20/2017 Study Time: 07:24 AM Date of : 1950 Age: 67 year(s) Height: 162.6 cm (64 in.) Weight: 50.8 kg (112 lb.) BSA: 1.53 m2 Gender: Female Examination: Echo Indication: Chest Pain Image Quality: Contrast: Requested by: Uriel Roberts BP: 126 mmHg/59 mmHg Heart Rate: Rhythm: Indication: Chest Pain Procedure Staff Supervisor Sterile Processing: Shannon Stafford Reading Physician: Cecil Douglas Requesting Provider: Conclusions: Normal size left ventricle. EF is 68 %. No regional wall motion abnormality. The left atrium is mildly dilated. Mild mitral valve regurgitation is present. Trivial aortic valve regurgitation. Mild tricuspid regurgitation is present. Measurements: Chambers Valvular Assessment AV/MV Valvular Assessment TV/PV Normal Normal Normal Name Value Range Name Value Range Name Value Range Ao Sandy (MM): 3.4 cm (2.2 cm-3.7 AV meanP mmHg ( - ) TR Vmax: 2.54 mm/s ( - ) cm) MV E Vmax: 1.18 m/s ( - ) TR PGmax: 26 mmHg ( - ) IVSd (2D): 0.8 cm (0.6 cm-1.1 MV A Vmax: 0.67 m/s ( - ) syst. PAP: 31 mmHg ( - ) cm) MV E/A: 1.76 ( - ) LVDd (2D): 3.9 cm (3.9 cm-5.3 cm) LVDs (2D): 2.3 cm (2.1 cm-4 cm) LVPWd (2D): 1.0 cm ( - ) LVEF (MOD4): 68 % (>=55 %) Continued Measurements: Chambers Valvular Assessment AV/MV Valvular Assessment TV/PV Name Value Name Value Name Value LADs: 3.6 cm MV E/E' Septal: 15.50 CVP (est.): 5 mmHg LADs Lon.5 cm MV E/E' Lateral: 13.80 LA Area: 19.0 cm2 Patient: DEMARIO BREWER Study Date: 06/20/2017 Page 1 of 2 07:24 AM Additional Vessels Name Value Ao Ascendin.1 cm Findings: Left Ventricle: Normal size left ventricle. Normal global systolic LV function. EF is 68 %. No regional wall motion abnormality. Right Ventricle: Normal size right ventricle. Left Atrium: The left atrium is mildly dilated. Right Atrium: The right atrium is normal in size. Mitral Valve: The mitral valve is normal in appearance. Mild mitral valve regurgitation is present. Aortic Valve: The aortic valve is normal in appearance and function. Trivial aortic valve regurgitation. Tricuspid Valve: The tricuspid valve appears normal. Mild tricuspid regurgitation is present. Pulmonic Valve: The pulmonic valve is normal in appearance. Pericardium: No pericardial effusion. (No Signature Object) Patient: DEMARIO BREWER Study Date: 06/20/2017 Page 2 of 2 07:24 AM [id number]
[2017-06-20 11:59] VITALS: TEMP 98.1
[2017-06-20] MEDS ORDERED: FEXOFENADINE HCL 30 MG PO SCH ×2 (14:00)
[2017-06-20 14:09] VITALS: BP 103/53; PULSE 77; RESP 16; O2SAT 93
--- NOTE | 2017-06-20 14:54 | SOAPPROG ---
SOAP Progress Note Assessment/Plan: Assessment: 1. Chest pressure with dynamic ecg changes. 2. Systemic mastocytosis. Query Kounis sydrome " allergic angina" 06/20/17 14:49 Impression: No further pain. Triggered events resolving on steroids. Stable hemodynamics. Passed modified Kwan protocol today completing 2nd stage of Kwan protocol without angina. Normal heart rate and blood pressure response. There was st depression of 1 mm at peak exercise. Ok for discharge from my point of view. She has ruled our for ACS and has no exertional symptoms. Would consider intermediate treadmill as outpatient to fully risk stratify patient. My understanding of Kounis syndrome is that as her systemic disease improves. The coronary component should also improve. Subjective: No further pain. Objective: Vital Signs Temp Pulse Resp BP Pulse Ox 36.7 C 77 16 103/53 L 93 06/20/17 11:57 06/20/17 14:00 06/20/17 14:00 06/20/17 14:00 06/20/17 14:00 Laboratory Results 06/20/17 05:20 06/20/17 05:20 06/19/17 06/20/17 06/21/17 05:59 05:59 05:59 Intake Total 400 Balance 400 Physical Exam - Physical Exam General Appearance: alert, no apparent distress EENT: PERRL/EOMI Neck: non-tender, full range of motion Respiratory: chest non-tender, lungs clear Cardiac/Chest: normal peripheral pulses, regular rate, rhythm, No edema, No gallop, No JVD ICD10 Worksheet Patient Problems: Problems Problem Status Onset Allergic reaction Acute Chest pain Acute
--- NOTE | 2017-06-20 15:26 | HOSPPROG ---
Hospitalist Progress Note Assessment/Plan: 67 yo w systemic mastocytosis cp: low risk stress mastocytosis: stable dispo: home today > 30 minutes Subjective: case d/w dr rapp. stress low risk Objective: Vital Signs Temp Pulse Resp BP Pulse Ox 36.7 C 77 16 103/53 L 93 06/20/17 11:57 06/20/17 14:00 06/20/17 14:00 06/20/17 14:00 06/20/17 14:00 Laboratory Results 06/20/17 05:20 06/20/17 05:20 06/19/17 06/20/17 06/21/17 05:59 05:59 05:59 Intake Total 400 Balance 400 - Physical Exam Constitutional: no apparent distress, appears nourished Eyes: PERRL, anicteric sclera Ears, Nose, Mouth, Throat: moist mucous membranes, hearing normal Cardiovascular: regular rate and rhythym, no murmur, rub, or gallop Respiratory: no respiratory distress, no rales or rhonchi Gastrointestinal: normoactive bowel sounds, soft, non-tender abdomen Genitourinary: No asher in urethra Skin: warm, normal color Musculoskeletal: full muscle strength, no muscle tenderness Neurologic: AAOx3 Psychiatric: interacting appropriately ICD10 Worksheet Patient Problems: Problems Problem Status Onset Allergic reaction Acute Chest pain Acute
--- NOTE | 2017-06-20 15:53 | GDS ---
[f rep st] DISCHARGE SUMMARY DISCHARGE DIAGNOSES: 1. Systemic mastocytosis with flare. 2. Chest pain. 3. Hypothyroidism. 4. Multiple drug allergies. HOSPITAL COURSE: Please see admission history and physical by Dr. Mariola Cardenas. The patient present ed with mastocytosis symptoms, flushing, nausea, vomiting. She also developed chest pain. She had t roponins that were all negative; although 1 was 0.019. She underwent stress test which showed nonspe cific EKG changes. This was defined as a low risk but not negative stress test. No medications were added. 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 /[id number]/MODL
--- NOTE | 2017-06-21 16:20 | ASDISCHSUM ---
Discharge Information Plan Status:Home with No Needs Medically Cleared to Leave: Discharge Date:06/20/2017 04:00 PM CM D/C Disposition:Home, Routine, Self-Care ADT D/C Disposition:Home, Routine, Self-Care Projected Discharge Date:06/20/2017 04:00 PM Transportation at D/C:Family Discharge Delay Reason: Follow-Up Date:06/20/2017 04:00 PM Discharge Slot: Final Diagnosis: Placement Information Patient Contact Information Contact Name:HOLLY Relationship: Address:[address] City:[place] Alternate Phone: [facility]/Zip Code:[place] [address] Email: Financial Information Financial Class:Medicare Advantage Plans Primary Plan Desc:[facility] [employer] PLANS Primary Plan Number:[id number] Secondary Plan Desc: Secondary Plan Number: Assessment Information [facility] CM Progress Note CM Note CM Note Notes: 06/19/2017 Case Management Note: Reviewed chart, spoke w/RN. No case management d/c needs identified d/t pt age, marital status and activity levels prior to admission. Case Management d/c poc: Independent when medically stable with follow up as directed. Case Management available if needs change. Date Signed: 06/19/2017 09:59 AM Electronically Signed By:Ankita Boucher RN Intervention Information Intervention Type:*MOMO-Signed Date of Service:06/19/2017 12:35 PM Patient Type:Observation Staff Member:Leela Guerrier Hours: Discipline: Severity: Comment:
== END 2017-06-20 16:00 | disposition home or self-care (01) | DRG 842 ==
LOC: F2W 23:23 → F2N 06-19 14:47 → OBSVTOIN 06-19 15:48
PROVIDERS: ADMIT Family Medicine; ATTEND Internal Medicine
DX: D47.02 Systemic mastocytosis (principal); E06.3 Autoimmune thyroiditis; Z85.43 Personal history of malignant neoplasm of ovary
CPT/HCPCS: 96374; G0378; J0171; J1200; J2405

== ENCOUNTER → 2018-03-05 | Outpatient (CLI) | payer OTHER | LOC: FIMAGING 08:08 | PROVIDERS: ATTEND Family Medicine Sports Medicine | DX: M50.321 Other cervical disc degeneration at C4-C5 level (principal); M48.02 Spinal stenosis, cervical region; M43.14 Spondylolisthesis, thoracic region ==

== ENCOUNTER → 2018-05-01 | Outpatient (CLI) | payer OTHER | LOC: FIMAGING 13:23 | PROVIDERS: ATTEND Internal Medicine | DX: Z15.01 Genetic susceptibility to malignant neoplasm of breast (principal); C50.911 Malignant neoplasm of unspecified site of right female breast; Z80.41 Family history of malignant neoplasm of ovary ==

== ENCOUNTER 2018-10-31 00:13 | Observation (INO) | payer OTHER ==
[2018-10-31] MEDS ORDERED: NS 1,000 ML IV ONE (00:48)
[2018-10-31] MEDS ORDERED: ONDANSETRON 4 MG/2 ML VIAL IVP ONE ×2 (00:48→02:11)
[2018-10-31] MEDS ORDERED: methylPREDNISolone SOD SUCC 125 MG/2 ML VIAL IVP ONE (00:48)
[2018-10-31] MEDS ORDERED: FAMOTIDINE 20 MG/2 ML SDV IVP ONE ×2 (00:48→02:11)
--- NOTE | 2018-10-31 00:52 | EDPHY ---
H & P Stated Complaint: vomiting/diarrhea, abd pain, poss allergic reation? Time Seen by Provider: 10/31/18 00:41 HPI/ROS: Chief Complaint: Vomiting, mast cell disease HPI: 68-year-old woman with a history of mast cell disease is presenting with an exacerbation. She has been having nausea and vomiting and abdominal cramping which is typical for her presentations. She had an MRI done yesterday and did have reaction to the contrast but that treated successfully. Today she has been having persistent nausea vomiting. She has been able to keep her usual medications down. She has a treatment plan in place from her physician at [facility]. She is requesting IM Benadryl, IV Solu-Medrol, famotidine, Zofran and warm fluids. No fevers or chills. No chest pain or shortness of breath. No skin rash. No shortness of breath or cough. ROS: 10 systems were reviewed and were negative except those elements noted in the HPI. PMH: Mast cell disease Social History: No smoking, no alcohol, no recreational drug use Family History: non-contributory Physical Exam: Gen: Awake, Alert, No Distress HEENT: Nose: no rhinorrhea Eyes: PERRLA, EOMI Mouth: Moist mucosa Neck: Supple, no JVD Chest: nontender, lungs clear to auscultation Heart: S1, S2 normal, no murmur Abd: Soft, non-tender, no guarding Back: no CVA tenderness, no midline tenderness Ext: no edema, non-tender Skin: no rash Neuro: CN II-XII intact, Sensation grossly intact, Strength 5/5 in bilateral upper and lower extremities - Personal History Current Tetanus Diphtheria and Acellular Pertussis (TDAP): Yes - Medical/Surgical History Hx Asthma: No Hx Chronic Respiratory Disease: No Hx Diabetes: No Hx Cardiac Disease: No Hx Renal Disease: No Hx Cirrhosis: No Hx Alcoholism: No Hx HIV/AIDS: No Hx Splenectomy or Spleen Trauma: No Other PMH: systemic mastocyctosis, hoshimoto's, hysterectomy, ovarian ca, carpal tunnel surg, cyst removed from back, tonsillectomy - Social History Smoking Status: Former smoker Constitutional: Initial Vital Signs Temperature (C) 37.3 C 10/31/18 00:16 Heart Rate 116 H 10/31/18 00:16 Respiratory Rate 20 10/31/18 00:16 Blood Pressure 125/78 H 10/31/18 00:16 O2 Sat (%) 97 10/31/18 00:16 O2 Delivery Mode Room Air Allergies/Adverse Reactions: dextrose Allergy (Severe, Verified 06/19/17 02:52) diphenhydramine HCl [From Benadryl] Allergy (Severe, Verified 06/18/17 21:05) Anaphylaxis doxycycline Allergy (Severe, Verified 06/18/17 21:05) Anaphylaxis paclitaxel Allergy (Severe, Verified 06/18/17 21:05) Anaphylaxis Quinolones Allergy (Severe, Verified 06/18/17 21:05) Anaphylaxis alcohol Allergy (Verified 06/18/17 21:05) amphotericin B Allergy (Verified 06/18/17 21:05) aspirin Allergy (Verified 06/18/17 21:05) atracurium Allergy (Verified 06/18/17 21:05) benzocaine Allergy (Verified 06/18/17 21:05) chloroprocaine Allergy (Verified 06/18/17 21:05) codeine Allergy (Verified 06/18/17 21:05) dextran sulfate Allergy (Verified 06/18/17 21:05) dextromethorphan Allergy (Verified 06/18/17 21:05) doxacurium Allergy (Verified 06/18/17 21:05) ketorolac tromethamine [From Toradol] Allergy (Verified 06/18/17 21:05) metocurine Allergy (Verified 06/18/17 21:05) mivacurium Allergy (Verified 06/18/17 21:05) morphine Allergy (Verified 06/18/17 21:05) NSAIDS (Non-Steroidal Anti-Inflamma Allergy (Verified 06/18/17 21:05) polymyxin B Allergy (Verified 06/18/17 21:05) procaine Allergy (Verified 06/18/17 21:05) quinine Allergy (Verified 06/18/17 21:05) succinylcholine Allergy (Verified 06/18/17 21:05) tetracaine Allergy (Verified 06/18/17 21:05) vancomycin Allergy (Verified 06/18/17 21:05) contrast dye Allergy (Severe, Uncoded 05/25/16 17:14) Anaphylaxis ANTICHOLINERGICS Allergy (Uncoded 05/25/16 17:14) anything causing mast cell degranul Allergy (Uncoded 12/17/15 20:51) beta blockers Allergy (Uncoded 12/17/15 20:52) local anesthetics Allergy (Uncoded 12/17/15 20:52) PRESERVATIVES Allergy (Uncoded 05/25/16 17:14) TURBOCURARINE Allergy (Uncoded 05/25/16 17:14) Home Medications: Medication Instructions Recorded Acetaminophen [Tylenol 325mg (*)] 1 - 2 tab PO DAILY PRN 12/17/15 Cetirizine [ZyrTEC 10 mg (*)] 10 - 20 mg PO HS 12/17/15 Cromolyn Sodium [GASTROCROM] 40 mg PO .BID-QID 12/17/15 EPINEPHrine [Epipen 0.3 MG] 0.3 mg IM ONCE PRN 12/17/15 Famotidine [Pepcid 20 MG (*)] 20 mg PO BID 12/17/15 Fexofenadine HCl 60 mg PO DAILY 12/17/15 Fluticasone Hfa 110 Mcg [Flovent 2 puffs IH DAILY PRN 12/17/15 110 MCG Hfa MDI (*)] Ipratropium 0.03% Nasal [Atrovent 1 sprays EACHNARE BID PRN 12/17/15 0.03% Nasal (*)] Ketotifen Fumarate 1 drop EACHEYE BID PRN 12/17/15 LORazepam [Ativan (*)] 0.5 mg PO HS 12/17/15 Levothyroxine [Synthroid 125 mcg 125 mcg PO DAILY06 12/17/15 (*)] diphenhydrAMINE [Benadryl 25 MG 25 - 50 mg PO DAILY PRN 12/17/15 (*)] hydrOXYzine HCL [Vistaril 10MG 10 mg PO DAILY PRN 12/17/15 (RX)] predniSONE 40 - 60 mg PO DAILY PRN 12/17/15 traMADol [Ultram 50 mg (*)] 50 mg PO DAILY PRN 12/17/15 Azelastine [Astelin] 1 - 2 sprays EACHNARE BID PRN 06/19/17 Azelastine/Fluticasone [Dymista 1 - 2 sprays EACHNARE DAILY PRN 06/19/17 Nasal [place]] Bepreve Eye Drops 1 drop EACHEYE BID PRN 06/19/17 Calcium Carbonate [Tums 500MG (*)] 500 mg PO DAILY PRN 06/19/17 Herbals/Supplements -Info Only 1 ea PO DAILY 06/19/17 Levocetirizine Dihydrochloride 5 mg PO DAILY PRN 06/19/17 [Xyzal] Montelukast Sodium [Singulair 10 10 mg PO DAILY PRN 06/19/17 mg (*)] Multivitamins [Multivitamin (*)] 1 each PO DAILY 06/19/17 Olopatadine Nasal [place] 1 sprays EACHNARE BID PRN 06/19/17 Ranitidine HCl [Zantac] 150 mg PO DAILY PRN 06/19/17 Veramyst Nasal [place] 2 spray EACHNARE DAILY PRN 06/19/17 predniSONE 60 mg PO DAILY #12 tablet 10/31/18 Medical Decision Making ED Course/Re-evaluation: Patient mildly improved. She has had some or diarrhea is to continue complain of nausea. She is requesting additional Zofran and Pepcid. This has been ordered. Patient continue feel nauseated, not tolerating fluids. I have discussed with Dr. Cardenas, hospitalist. She will admit to her service for further care. - Data Points Laboratory Results: Laboratory Results 10/31/18 00:41 10/31/18 00:41 Medications Given: Discontinued Medications Cetirizine HCl (Zyrtec) 10 mg PO DAILY GLORIA Stop: 04/29/19 07:59 Last Admin: 10/31/18 13:31 Dose: Not Given Diphenhydramine HCl (Benadryl Injection) 50 mg IM ONCE ONE Stop: 10/31/18 00:49 Last Admin: 10/31/18 00:56 Dose: 50 mg Diphenhydramine HCl (Benadryl Injection) 50 mg IM ONCE ONE Stop: 10/31/18 07:55 Last Admin: 10/31/18 08:28 Dose: 50 mg Famotidine (Pepcid) 20 mg IVP EDNOW ONE Stop: 10/31/18 00:49 Last Admin: 10/31/18 00:56 Dose: 20 mg Famotidine (Pepcid) 20 mg IVP EDNOW ONE Stop: 10/31/18 02:12 Last Admin: 10/31/18 03:39 Dose: 20 mg Famotidine (Pepcid) 60 mg PO BID [facility] Stop: 04/29/19 08:59 Last Admin: 10/31/18 09:30 Dose: 60 mg Sodium Chloride (Ns) 1,000 mls @ 0 mls/hr IV ONCE ONE; Wide Open PRN Reason: Protocol Stop: 10/31/18 00:49 Last Admin: 10/31/18 00:59 Dose: 1,000 mls Sodium Chloride (Ns) 1,000 mls @ 125 mls/hr IV CONT GLORIA Stop: 04/29/19 07:59 Last Admin: 10/31/18 08:45 Dose: 1,000 mls Methylprednisolone Sodium Succinate (Solu-Medrol) 125 mg IVP EDNOW ONE Stop: 10/31/18 00:49 Last Admin: 10/31/18 00:56 Dose: 125 mg Methylprednisolone Sodium Succinate (Solu-Medrol) 125 mg IVP Q6HRS [facility] Stop: 10/31/18 18:01 Last Admin: 10/31/18 10:23 Dose: 125 mg Ondansetron HCl (Zofran) 4 mg IVP EDNOW ONE Stop: 10/31/18 00:49 Last Admin: 10/31/18 00:56 Dose: 4 mg Ondansetron HCl (Zofran) 4 mg IVP EDNOW ONE Stop: 10/31/18 02:12 Last Admin: 10/31/18 03:39 Dose: 4 mg Departure - Departure Disposition: [facility] In[facility] Acute Clinical Impression: Abdominal pain, Nausea & vomiting Condition: Fair
[2018-10-31 00:59] LABS: PLATELET COUNT 326 10^3/uL (150-400)
[2018-10-31] MEDS ORDERED: LORazepam 0.5 MG TAB PO PRN (07:50)
[2018-10-31] MEDS ORDERED: ONDANSETRON DISINTEGRATING 4 MG TAB PO PRN (07:50)
[2018-10-31] MEDS ORDERED: ACETAMINOPHEN 325 MG TAB PO PRN (07:50)
[2018-10-31] MEDS ORDERED: ONDANSETRON 4 MG/2 ML VIAL IVP PRN (07:50)
[2018-10-31] MEDS ORDERED: EPINEPHrine KIT (USE FOR EPIPEN) 1 MG/ML IM PRN (07:55)
[2018-10-31] MEDS ORDERED: methylPREDNISolone SOD SUCC 125 MG/2 ML VIAL IVP SCH (08:00)
[2018-10-31] MEDS: NS 1,000 ML IV SCH ×2 (08:25→08:45)
[2018-10-31] MEDS ORDERED: FAMOTIDINE 20 MG TAB PO SCH (09:00)
--- NOTE | 2018-10-31 09:14 | GHP ---
[f rep st] HISTORY AND PHYSICAL DATE OF ADMISSION: 10/31/2018 SOURCE: Patient provides history, appears reliable. EMR reviewed and case discussed with ED provide ashley. CHIEF COMPLAINT: Nausea, vomiting, abdominal pain. 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 Patient reports that she underwent an MRI of the breast and received gadolinium. S he immediately developed a rash over her right chest. She generally has multiple [facility] with her response system including Courtney, Pepcid, Benadryl, Ativan, and epinephrine, which were not helping. The patient continued to have nausea, vomiting, diarrhea, and was not able to keep anyt terry down, so she presented to the emergency department. The patient reports that these symptoms can occur with her reactions. She does report, however, that her daughter and granddaughter are sick wi th upper respiratory-type symptoms. She denies any melena, hematochezia, or hematemesis. REVIEW OF SYSTEMS: Ten systems reviewed, negative except as noted above. ALLERGIES: Extensive. Please see EMR list. HOME MEDICATIONS: Please see EMR. Pharmacy to update. 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 PAST SURGICAL HISTORY: Significant for hysterectomy, BSO, carpal tunnel release, lumpectomy bilatera lly, cyst removal of back. FAMILY HISTORY: Breast, ovarian cancer in mother, siblings, and extended family. Sister and mother with history of diabetes type 2. Mother also with history of flushing. Father with history of CAD, hypothyroidism, kidney fibrosis, CVA, vascular dementia. SOCIAL HISTORY: Patient is . She lives with her . She is a former smoker. No alcoho l or drug use. CODE STATUS: Full. PHYSICAL EXAMINATION: VITAL SIGNS: Upon arrival to the emergency department, blood pressure 125/78, heart rate 116, respiratory rate 20, O2 saturation 97% on room air, temperature 37.3. Current vital signs, blood pressure is 111/59, heart rate 85, respiratory rate of 16, O2 saturation 92% on room ai r with temperature 36.9. GENERAL: No acute distress. Pleasant frail elderly lady, appears fatigued , dehydrated, is lying quietly in bed. is at bedside. HEAD: Normocephalic, atraumatic. EY ES: Extraocular muscles grossly intact. Pupils equal, round, decreased reactivity to light bilatera lly, but symmetric. No scleral icterus, conjunctival injection. ENT: Mucous membranes appear moist . No oropharyngeal erythema or exudates. No nasal discharge. NECK: Supple, trachea midline. CV: Regular rate and rhythm. No murmurs, rubs, or gallops appreciated. RESPIRATORY: Lungs clear to au scultation bilaterally. No wheezes, rales, or rhonchi appreciated. No increased work of breathing. ABDOMEN: Positive bowel sounds. Soft, nontender to palpation. No rebound, guarding, or masses arlin reciated. Patient reports like her abdomen is distended, but it is often concave. : No suprapubi c tenderness to palpation. No CVA tenderness. MUSCULOSKELETAL: Generalized deconditioning, but the patient is able to sit up independently. Moves all extremities. NEURO: Grossly nonfocal. No faci al drooping. Moves all extremities as noted above. PSYCH: Patient does appear to be slightly anxio us, but she is pleasant, cooperative. LABORATORY STUDIES: WBC 11.1, H and H is 14.5 and 42.1, MCV of 94.2, platelet count 326, neutrophil percent is 84.3. Sodium is 139, potassium 4.4, chloride is 103, CO2 24 anion gap 12, BUN is 27, creatinine 0.8, GFR gr eater than 60, glucose is 166, calcium 9.9, total bilirubin 0.4 ALT is 22, AST is 20, alk phos is 124 , total protein 8.3, albumin is 4.7. ASSESSMENT AND PLAN: A 68-year-old female with history of mastocytosis who presents to the emergency department with complaints of intractable nausea, vomiting, abdominal pain related to recent adminis tration of gadolinium. 1. . The patient does not require any epinephrine at this time. She did receive steroids and Benadryl, famotidine, Zofran, and the emergency department with improvement in her sy mptoms. She reports that she continues to feel quite dehydrated. She is able to now sip on some flu ids, but she is concerned that her symptoms are recurring. We will plan to continue scheduled steroi ds for 24 hours unless patient should have rapid improvement later this afternoon. She would like to go home. Also continue famotidine, Zyrtec, steroids, Zofran p.r.n., and IV fluids. Epinephrine has been made available p.r.n. Patient with nausea, vomiting, diarrhea. She does have some family memb ers with similar type symptoms. We will check a stool PCR if patient should continue to have symptom s given the increased activity of norovirus in the community. 2. Chronic medical issues, hypothyroidism, hyperlipidemia, history of breast cancer, status post lum pectomy, and remote history of ovarian cancer. We will plan to continue patient's home medications. Hold off on her herbals and supplements. 3. Fluid, electrolyte, nutrition. Continue IV fluid room temperature. Electrolytes are adequate. Advance as tolerated. 4. Prophylaxis. Sequential compression devices. Holding anticoagulation, anticipating early discha rge and will encourage early mobilization. 5. Code status, full. DISPOSITION: The patient admitted to observation status on the Med Surg floor. Hopefully, patient's symptoms can be controlled and patient to be discharged later today. /[id number]/MODL
[2018-10-31] MEDS: CETIRIZINE 10 MG TAB PO SCH ×2 (10:27→13:31)
[2018-10-31] MEDS ORDERED: BEPREVE EYE EACHEYE PRN (11:40)
[2018-10-31] MEDS ORDERED: MONTELUKAST SODIUM 10 MG TAB PO PRN (11:40)
[2018-10-31] MEDS ORDERED: AZELASTINE EACHNARE PRN (11:40)
[2018-10-31] MEDS ORDERED: FLUTICASONE HFA 110 MCG MDI IH PRN (11:40)
[2018-10-31] MEDS ORDERED: IPRATROPIUM 0.03% NASAL SPRAY EACHNARE PRN (11:40)
[2018-10-31] MEDS ORDERED: CALCIUM CARBONATE 500 MG CHEWABLE TAB PO PRN (11:40)
[2018-10-31] MEDS ORDERED: AZELASTINE NASAL MDI EACHNARE PRN (11:40)
[2018-10-31] MEDS ORDERED: OLOPATADINE EACHNARE PRN (11:40)
[2018-10-31] MEDS ORDERED: traMADol 50 MG TAB PO PRN (11:40)
[2018-10-31] MEDS ORDERED: NON-FORMULARY NEW DRUG (Epinephrine [Epipen 0.3 Mg] 0.3 MG) IM PRN (11:40)
[2018-10-31] MEDS ORDERED: NON-FORMULARY NEW DRUG (Ranitidine Hcl [Zantac] 150 MG) PO PRN (11:40)
[2018-10-31] MEDS ORDERED: NON-FORMULARY NEW DRUG (Levocetirizine Dihydrochloride [Xyzal] 5 MG) PO PRN (11:40)
[2018-10-31] MEDS ORDERED: hydrOXYzine HCL 10 MG TAB PO PRN (11:40)
[2018-10-31] MEDS ORDERED: KETOTIFEN FUMARATE EACHEYE PRN (11:40)
[2018-10-31] MEDS ORDERED: FLUTICASONE EACHNARE PRN (11:40)
[2018-10-31] MEDS ORDERED: CROMOLYN SODIUM PO SCH (11:45)
--- NOTE | 2018-10-31 13:55 | HOSPPROG ---
Hospitalist Progress Note Assessment/Plan: 68 yo female with hx of mast cell activation syndrome admitted with intractable vomiting. Now feels better. Will have lunch and determine if she is ready for discharge Needs Pred taper, which is being provided. She reports that she is not able to tolerate abrupt cessation Cont rest of IVF left in the bag Benadryl as needed per the direction of her PCP at [facility] Diagnosis: #Intractable vomiting #Dehydration: resolved #Mast Cell activation syndrome, history Dispo: pending further improvement, likely d/c today Subjective: no current nausea or vomiting Objective: Vital Signs Temp Pulse Resp BP Pulse Ox 36.9 C 98 16 134/70 H 94 10/31/18 07:55 10/31/18 11:54 10/31/18 11:54 10/31/18 11:54 10/31/18 11:54 10/30/18 10/31/18 11/01/18 05:59 05:59 05:59 Intake Total 1300 Output Total 400 Balance 1300 -400 - Physical Exam Constitutional: no apparent distress Eyes: PERRL, EOMI Ears, Nose, Mouth, Throat: moist mucous membranes Cardiovascular: regular rate and rhythym, No edema Respiratory: no respiratory distress, no rales or rhonchi, clear to auscultation Gastrointestinal: normoactive bowel sounds, soft, non-tender abdomen Skin: warm Neurologic: AAOx3 Psychiatric: interacting appropriately, not anxious, not encephalopathic Lymph, Heme, Immunologic: No petechiae ICD10 Worksheet Patient Problems: Problems Problem Status Onset Abdominal pain Acute Nausea & vomiting Acute Allergic reaction Acute Chest pain Acute
--- NOTE | 2018-10-31 14:31 | ASMTCMCOM ---
CM Note CM Note Notes: Pt is a 68 yo F who presents with abdominal pain, vomiting and has history of mast cell disease and multiple medical complexities including cancer. [facility] are following. No CM needs identified at this time. Pt will likely be discharged independently. CM available if needs arise. Plan: Independent. Date Signed: 10/31/2018 02:30 PM Electronically Signed By:EVELIA Langley
--- NOTE | 2018-10-31 15:41 | ASDISCHSUM ---
Discharge Information Plan Status:Home with No Needs Medically Cleared to Leave: Discharge Date: CM D/C Disposition:Home, Routine, Self-Care ADT D/C Disposition:Home, Routine, Self-Care Projected Discharge Date: Transportation at D/C:Family Discharge Delay Reason: Follow-Up Date: Discharge Slot: Final Diagnosis: Placement Information Patient Contact Information Contact Name:HOLLY Relationship: Address:[address] [place] [address] City:[place] Alternate Phone: State/Zip Code:[place] [address] Email: Financial Information Financial Class:Medicare Advantage Plans Primary Plan Desc:[facility] ADV[employer]AGE PLANS Primary Plan Number:[id number] Secondary Plan Desc: Secondary Plan Number: Assessment Information [facility] CM Progress Note CM Note CM Note Notes: Pt is a 68 yo F who presents with abdominal pain, vomiting and has history of mast cell disease and multiple medical complexities including cancer. [facility] are following. No CM needs identified at this time. Pt will likely be discharged independently. CM available if needs arise. Plan: Independent. Date Signed: 10/31/2018 02:30 PM Electronically Signed By:EVELIA Langley Case Management Discharge Plan Note Case Management Discharge Discharge Order Complete? Answers: Yes Patient to Obtain Answers: via Family Medications Transportation Arranged Answers: Family/Friends Discharge Comments Notes: Pt is being discharged independently. No CM needs identified. Date Signed: 10/31/2018 03:40 PM Electronically Signed By:EVELIA Langley Intervention Information
--- NOTE | 2018-10-31 15:42 | ASMTLACE ---
LACE Length of stay for Answers: 1 day current admission Acuity / Level of Answers: No Care: Did the patient have an inpatient admission? Comorbidities - select Answers: Opioid dependence all that apply / Chronic pain Other Notes: Mast cell disease # of Emergency department Answers: 1-2 visits in the last 6 months Score: 7 Date Signed: 10/31/2018 03:41 PM Electronically Signed By:EVELIA Langley
[2018-10-31 15:57] VITALS: BP 122/62
[2018-10-31] MEDS ORDERED: CETIRIZINE 10 MG TAB PO SCH (21:00)
--- NOTE | 2018-10-31 21:00 | PDDCSUM ---
Discharge Summary Discharge Summary: 68 yo female with hx of mast cell activation syndrome admitted with intractable vomiting. Now feels better. Will have lunch and determine if she is ready for discharge Needs Pred taper, which is being provided. She reports that she is not able to tolerate abrupt cessation She had e/o dehydration on admission and received IVF and now feels better. Benadryl as needed per the direction of her PCP at [facility]. She will f/ u with them in 1-2 weeks Discharge Diagnosis: #Intractable vomiting #Dehydration: resolved #Mast Cell activation syndrome, history Exam: per progress note today Meds: see med rec total time spent on d/c is 35 mins
[2018-11-01] MEDS ORDERED: LEVOTHYROXINE 125 MCG TAB PO SCH (06:00)
[2018-11-01] MEDS ORDERED: FEXOFENADINE HCL 60 MG PO SCH (09:00)
[2018-11-01] MEDS ORDERED: MULTIVITAMINS 1 EACH TAB PO SCH (09:00)
[2018-11-01] MEDS ORDERED: Herbals/Supplements -Info Only PO SCH (09:00)
== END 2018-10-31 18:53 | disposition home or self-care (01) ==
LOC: F1N 05:16
PROVIDERS: ADMIT Family Medicine; ATTEND Family Medicine
DX: R11.10 Vomiting, unspecified (principal); E86.0 Dehydration; D89.40 Mast cell activation, unspecified; Z85.43 Personal history of malignant neoplasm of ovary
CPT/HCPCS: 96361; 96372; 96374; 96375; 96376; 99285; G0378; J1200; J2405; J2930